=== PATIENT | female | born 2000 | race Two or more races ===

== ENCOUNTER 2024-09-26 14:33 | Emergency (ER) | payer OTHER ==
[~2024-09-26] VITALS: Ht 147.3 cm; Wt 52.2 kg
[2024-09-26] MEDS ORDERED: ORAPRED ODT10 MG (15:28)
[2024-09-26] MEDS ORDERED: ZYRTEC10 M3 PO (15:28)
[2024-09-26] MEDS ORDERED: SYEDA 28 TABLE1 EACH (15:29)
[2024-09-26] MEDS ORDERED: SINGULAIR10 MG PO (18:16)
== END 2024-09-26 18:23 | disposition home or self-care (01) ==
LOC: ER 14:36
DX: L50.0 Allergic urticaria (principal); Z88.8 Allergy status to other drugs, medicaments and biological substances